=== PATIENT | male | born 1955 | race Caucasian/White ===

== ENCOUNTER → 2019-09-12 | Outpatient (CLI) | payer MEDICARE, OTHER ==
[~2019-09-12] MED LIST: LORTAB 5/500 501 TAB PO; NAPROXEN EC500 MG PO; NO HOME MEDICATIONS; TENORMIN100 MG PO
== END ==
LOC: COL.RAD 09:17
DX: Z13.6 Encounter for screening for cardiovascular disorders (principal); F17.210 Nicotine dependence, cigarettes, uncomplicated

== ENCOUNTER 2021-05-12 12:58 | Outpatient (CLI) | payer MEDICARE, OTHER ==
[~2021-05-12] VITALS: Ht 182.9 cm; Wt 102.2 kg
[2021-05-12 14:18] VITALS: BP 143/77; PULSE 64; TEMP 99
[2021-05-12 14:30] VITALS: BP 123/62; PULSE 62
[2021-05-12] MEDS ORDERED: ZESTRIL 10MG10 MG PO (14:37)
[2021-05-12 14:47] VITALS: BP 137/69; PULSE 59
[2021-05-12 15:00] VITALS: BP 125/67; PULSE 57
[2021-05-12 15:30] VITALS: BP 129/69; PULSE 67
== END 2021-05-12 16:02 ==
LOC: EUO 12:58
DX: U07.1 COVID-19 (principal)
CPT/HCPCS: M0243; Q0244

== ENCOUNTER → 2022-11-23 | Outpatient (CLI) | payer MEDICARE, OTHER ==
[~2022-11-23] MED LIST changes: +ZESTRIL 10MG10 MG PO
== END ==
LOC: COL.RAD 12:57
DX: Z12.2 Encounter for screening for malignant neoplasm of respiratory organs (principal); F17.201 Nicotine dependence, unspecified, in remission